=== PATIENT | female | born 1995 | race Two or more races ===

== ENCOUNTER 2017-02-26 20:15 | Emergency (ER) | payer MEDICAID ==
[2017-02-26] MEDS ORDERED: Triple Antibiotic 0.94 gm Pkt TP ONE (20:46)
[2017-02-26] MEDS ORDERED: Triple Antibiotic 0.94 gm Pkt TP STA (20:46)
--- NOTE | 2017-02-26 20:52 | ED Physician Chart ---
Chief Complaint/HPI - Patient Information Date Seen:: 02/26/17 Time Seen:: 20:35 Chief Complaint:: L ankle injury earlier this evening. History of Present Illness:: Brought in by private auto because pt sustained above mentioned injury when she tripped and twisted her L ankle while she was running at about 7:30 pm today. Pt also sustained R knee abrasion when she fell. No other injury or pain. No LOC. No mentation change. Allergies:: Allergies Allergy/AdvReac Type Severity Reaction Status Date / Time No Known Allergies Allergy Verified 02/26/17 20:20 Vitals:: Vital Signs - 8 hr 02/26/17 20:20 Temp 98.3 F HR 66 RR 17 BP 121/71 O2 Sat % 100 Historian:: Patient Family MD/PCP:: Unknown LMP:: 02/04/17 Review:: Nurse's Note Reviewed Review of Systems - Review of Systems General/Constitutional: No fever, No chills, No weight loss, No weakness, No diaphoresis, No edema, No loss of appetite Skin: No rash, No bruising, Other (R knee abrasion.) Head: No headache, No light-headedness Eyes: No loss of vision, No pain, No diplopia ENT: No earache, No nasal drainage, No sore throat Neck: No neck pain, No swelling, No stiffness, No mass noted Cardio Vascular: No chest pain, No palpitations, No edema Pulmonary: No SOB, No cough, No wheezing GI: No nausea, No vomiting, No diarrhea, No pain, No constipation G/U: No dysuria, No frequency, No hematuria [employer]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, No abnormal vaginal bleed Musculoskeletal: No back pain, Other (L ankle pain) Endocrine: No polyuria, No polydipsia Psychiatric: No prior psych history Hematopoietic: No bruising, No lymphadenopathy Allergic/Immuno: No urticaria, No angioedema Neurological: No syncope, No focal symptoms, No paresthesia, No headache, No seizure, No dizziness, No confusion, No vertigo Past Medical History - Past Medical History Past Medical History: No significant medical hx Family History: None Social History: Non Smoker, Alcohol (occasional), No Drug Use, Single, Lives With Parents Employment:: Student Surgical History: None Psychiatricy History: None Medication: None, Reviewed Family Medical History - Family Member Sister Ethnicity: Living Status: Still Living Physical Exam - Physical Examination General/Constitutional: Awake, Well-developed, well-nourished, Alert, No distress, GCS 15, Non-toxic appearing Other Gen/Cons comments:: Breathes comfortably, speaks clearly, and interacts normally. Head: Atraumatic Eyes: Lids, conjuctiva normal, PERRL, EOMI Skin: No ecchymosis, Well hydrated, No lymphadenopathy Other Skin comments:: R knee has a superficial abrasive area about 6 x 3 cm at anteroinferior aspect. Nontender. No gross deformity, crepitus or swelling. FROM. Negative Drawer's sign. Stable MCL and LCL. No detectable motor/sensory/vascular deficit. Good distal pulse and capillary refill. ENMT: External ears, nose nl, Nasal exam nl, Lips, teeth, gums nl, Oropharynx nl Neck: Nontender, Full ROM w/o pain, No nuchal rigidity, No mass, No stridor Respiratory: Nl effort/Exclusion, Clear to Auscultation, No Wheeze/Rhonchi/Rales Cardio Vascular: RRR, No murmur, gallop, rubs GI: No tenderness/rebounding/guarding, No organomegaly, No hernia, Normal BS's, Nondistended, No mass/bruits Other GI comments:: Abdomen is soft. Other Extremities comments:: L ankle: Tenderness at lateral aspect with swelling. No obvious gross deformity or open wound. ROM is not well assessed due to pain. No detectable motor/sensory /vascular deficit. Good distal pulse and capillary refill. Neuro/Psych: Alert/oriented (oriented x 3), Judgement/insight normal, Mood normal, No focal deficits Misc: normal gait, Normal back, No paraspinal tenderness Labs/Radiology/EKG Results - Lab Results Results: Laboratory Tests 02/26/17 20:20 Urine Test NEGATIVE - Radiology Results Results: L ankle X-ray (3v.): Based on my interpretation, distal fibular fracture without any significant displacement. Official report is pending. ED Septic Shock - . Is Septic Shock (SBP<90, OR Lactate>4 mmol\L) present?: No - <6hrs of presentation: Vital Signs: Vital Signs - 8 hr 02/26/17 20:20 Temp 98.3 F HR 66 RR 17 BP 121/71 O2 Sat % 100 Reassessment (Disposition) - Reassessment Reassessment:: 2200 Pt overall feels better. Lab and radiological findings have been reviewed with pt. Pt requests to go home now. Aftercare instructions have been given. Reassessment Condition:: Improved - Diagnosis Diagnosis:: s/p mechanical fall with distal left fibular fracture and R knee abrasion, stable. - Aftercare/Follow up Instructions Aftercare/Follow-Up Instructions:: Refer to Discharge Instructions Notes:: Wear L leg/ankle splint as directed. Avoid wt bearing on L ankle. Use crutches. May take Motrin 200 mg tab 3 tabs po q8h as directed. Drowsiness precautions given with the use of [place]. Fracture instructions given. Wound care instructions given. Keep R knee abrasion clean and dry. F/U with Dr. Lees or PCP of pt's choice in one day for recheck and orthopedic referral. Return to ER immediately if condition worsens or if any further questions/problems. Medication Prescribed:: None - Patient Disposition Discharge/Transfer:: Home Time:: 22:00 Condition at Disposition:: Stable, Improved ED Discharge Plan - Patient Disposition Admit/Discharge/Transfer: PT DISCHARGED HOME Instructions: Ankle Fracture, Abrasion, [id number], Crutch Use Additional Instructions: follow up with your primary medical doctor EDI may take tylenol or motrin for pain as needed keep wearing fracture boots until advised by doctor to discontinue keep abrasion at R knee clean and dry
[2017-02-26] MEDS ORDERED: Hydrocodone/APAP 5mg/325mg Tab PO ONE (21:36)
[2017-02-26] MEDS ORDERED: Hydrocodone/APAP 5mg/325mg Tab ONE (21:40)
--- NOTE | 2017-02-27 10:47 | Diagnostic Imaging Report ---
Left ankle (3 views) HISTORY: Pain, swelling Soft tissue swelling noted over the lateral aspect of the ankle. There is a transverse mildly displaced fracture of the lateral malleolus. Joint spaces are maintained. IMPRESSION: 1. Mildly displaced transverse fracture of the lateral malleolus. Associated soft tissue swelling.
== END 2017-02-26 22:00 | disposition home or self-care (01) ==
LOC: ER 20:15
DX: S82.832A Other fracture of upper and lower end of left fibula, initial encounter for closed fracture (principal); S80.211A Abrasion, right knee, initial encounter; W01.0XXA Fall on same level from slipping, tripping and stumbling without subsequent striking against object, initial encounter; Y93.02 Activity, running; Y92.89 Other specified places as the place of occurrence of the external cause; Y99.8 Other external cause status
CPT/HCPCS: 73610-TC; 81025-TC